=== PATIENT | male | born 1975 | race Caucasian/White ===

== ENCOUNTER 2024-02-07 16:30 | Emergency (ER) | payer BC, OTHER ==
[~2024-02-07 16:30] MED LIST: Iopamidol-370 76% 500 ML MDV (1 ML CHARGE) ONE
[2024-02-07 17:23] LABS: #Basophils 0.03 10x3/uL (0.0-0.2); %Basophils 0.2 % (0.0-1.0); %Eosinophils 0.2 % (0.0-10.0); %Lymphocytes 8.2 % (21.0-51.0); %Monocytes 3.1 % (0.0-10.0); %Neutrophils 87.8 % (42.0-75.0); Hematocrit 45.5 % (42.0-52.0); Hemoglobin 15.3 g/dL (14.0-18.0); Mean Corpuscular HGB CONC 33.6 g/dL (32.0-36.0); Mean Corpuscular Hemoglobin 27.8 pg (27.0-31.0); Mean Corpuscular Volume 82.7 fL (78.0-98.0); Platelet Count 171 10x3/uL (130-400); RBC Distribution Width 12.8 % (11.5-14.5)
[2024-02-07 17:39] LABS: ALT (SGPT) 48 U/L (8-55); AST (SGOT) 23 U/L (5-34); Albumin 4.2 g/dL (3.5-5.0); Alkaline Phosphatase 68 U/L (40-110); Anion Gap 16 mmol/L (10-20); BUN (Urea Nitrogen) 23 mg/dL (8.9-20.6); Bilirubin, Total 0.3 mg/dL (0.2-1.2); Calc. Creatinine Clearance 0 mL/min (70-130); Calcium 9.2 mg/dL (7.8-10.44); Carbon Dioxide 24 mmol/L (22-29); Chloride 106 mmol/L (98-107); Estimated GFR 65; Globulin 2.7 g/dL (2.4-3.5); Glucose 112 mg/dL (70-105); Potassium 4.4 mmol/L (3.5-5.1); Protein, Total 6.9 g/dL (6.0-8.3); Sodium 142 mmol/L (136-145)
[2024-02-07 17:44] LABS: Troponin I Less than 0.010 ng/mL (< 0.028)
[2024-02-07] MEDS ORDERED: Morphine 4 MG/ML VIAL ONE (19:22)
[2024-02-07] MEDS ORDERED: Ketorolac Tromethamine 30 MG (1 mL) VIAL ONE (19:22)
== END 2024-02-07 19:59 | disposition home or self-care (01) ==
LOC: ERS 16:30
DX: S22.20XA Unspecified fracture of sternum, initial encounter for closed fracture (principal); W28.XXXA Contact with powered lawn mower, initial encounter
CPT/HCPCS: 36415; 71045; 71260; 80053; 84484; 85025; 93005; 96374; 96375; J1885; J2272; Q9967